=== PATIENT | male | born 1985 | race Caucasian/White ===

== ENCOUNTER 2021-07-12 08:43 | Emergency (ER) | payer MEDICAID, SELFPAY ==
[2021-07-12 08:47] VITALS: BP 114/69; PULSE 80; RESP 16; TEMP 36.7; O2SAT 98; BMI 22.5
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
--- NOTE | 2021-07-12 10:09 | PC.NURSE ---
PT HERE FOR MEDICATION REFILL ONLY. NO OTHER COMPLAINTS TODAY. NAD.
== END 2021-07-12 10:13 | disposition home or self-care (01) ==
PROVIDERS: Emergency Provider Emergency Medicine
DX: Z76.0 Encounter for issue of repeat prescription (principal); F31.9 Bipolar disorder, unspecified; F20.9 Schizophrenia, unspecified; F95.2 Tourette's disorder
CPT/HCPCS: 99283

== ENCOUNTER 2021-08-02 23:07 | Emergency (ER) | payer MEDICAID, SELFPAY ==
[2021-08-02 23:08] VITALS: BP 144/87; PULSE 76; RESP 18; TEMP 36.6; O2SAT 98; BMI 22.5
--- NOTE | 2021-08-02 23:43 | ED.DENTAL ---
HPI - Dental/Oral General Chief complaint: Dental/Oral Stated complaint: Dental pain Time Seen by Provider: 08/02/21 23:39 Source: patient Mode of arrival: ambulatory Limitations: no limitations History of Present Illness HPI Narrative: Patient with dental caries after eating nuts broke is to complaining of increased pain now. Patient does have an dentist and plan to follow up with him tomorrow Complaint: tooth pain Teeth map: 1. Broken carious tooth Onset (ago): hour(s) Duration: constant Severity: severe Severity scale (1-10): 6 Relieving factors: nothing Exacerbating factors: chewing and cold Context: history of dental caries Treatment prior to arrival: none Related Data Previous Rx's Medication Instructions Recorded aripiprazole 2 mg tablet (Abilify) 2 mg PO DAILY #30 tab 07/12/21 clonidine HCl 0.1 mg tablet 0.1 mg PO BID PRN #60 tab 07/12/21 propranolol 10 mg tablet 10 mg PO DAILY #30 tab 07/12/21 amoxicillin 875 mg-potassium 1 tab PO BID #20 tab 08/02/21 clavulanate 125 mg tablet (Augmentin) oxycodone-acetaminophen 5 mg-325 1 tab PO Q6H PRN #20 tab 08/02/21 mg tablet (Percocet) Allergies Allergy/AdvReac Type Severity Reaction Status Date / Time No Known Allergies Allergy Verified 08/02/21 23:31 Review of Systems Review of Systems: Yes all other systems are reviewed and are negative PMFSH Past Medical History Medical History Bipolar 1 disorder Schizophrenia Tourette's Social History Social History Advance Directives: No Physical Exam Vital Signs: Vital Signs: Last Vital Signs Temp 97.8 F 08/02/21 23:08 Pulse 76 08/02/21 23:08 Resp 18 08/02/21 23:08 BP 144/87 H 08/02/21 23:08 Pulse Ox 98 08/02/21 23:08 Body Mass Index 22.5 Const: General: no acute distress and well developed Orientation/consciousness: patient oriented x3 HENMT: Teeth image: 1. Broken tooth with deep caries no gum swelling or abscess tender to touch Throat: Yes posterior oropharynx normal Resp: Effort & Inspection: normal respiratory effort Auscultation: clear to auscultation bilaterally Cardio: Rate: regular rate Rhythm: regular rhythm Heart sounds: S1 normal heart sound present and S2 normal heart sound present Neuro: General: patient oriented x3 Discharge Plan Discharge Clinical Impression: Dental caries Patient Disposition: Home, Self-Care Instructions: Toothache (ED) Additional Instructions: Take antibiotic and pain medication as prescribed Follow-up with dentist Prescriptions: New oxycodone-acetaminophen [Percocet] 5-325 mg tablet 1 tab PO Q6H PRN (Reason: pain) Qty: 20 RF: 0 amoxicillin-pot clavulanate [Augmentin] 875-125 mg tablet 1 tab PO BID Qty: 20 RF: 0 No Action aripiprazole [Abilify] 2 mg tablet 2 mg PO DAILY Qty: 30 RF: 0 propranolol 10 mg tablet 10 mg PO DAILY Qty: 30 RF: 0 clonidine HCl 0.1 mg tablet 0.1 mg PO BID PRN (Reason: anxiety) Qty: 60 RF: 0
[2021-08-02] MEDS: Amoxicillin/Potassium Clav 875 MG TABLET PO (23:51)
[2021-08-02] MEDS: oxyCODONE HCl Immed Release 5 MG TABLET 10 MG PO (23:51)
== END 2021-08-02 23:59 | disposition home or self-care (01) ==
PROVIDERS: Emergency Provider Internal Medicine
DX: K02.9 Dental caries, unspecified (principal)
CPT/HCPCS: 99283; 99284

== ENCOUNTER 2022-04-15 02:18 | Emergency (ER) | payer OTHER, SELFPAY ==
--- NOTE | 2022-04-15 03:20 | ECG_ITS ---
Test Reason : ?SYNCOPE Blood Pressure : / mmHG Vent. Rate : 063 BPM Atrial Rate : 063 BPM P-R Int : 124 ms QRS Dur : 100 ms QT Int : 382 ms P-R-T Axes : 007 072 044 degrees QTc Int : 390 ms Normal sinus rhythm Normal ECG No previous ECGs available Referred By: Generic ED Physician Electronically Signed By:RIAN SINGLETON MD
[2022-04-15 03:26] LABS: Hematocrit 42.2 % (42.0-52.0); Hemoglobin 13.8 g/dl (14.0-18.0); Mean Corpuscular HGB Conc 32.7 g/dl (31.0-36.0); Mean Corpuscular Hemoglobin 29.4 pg (27.0-33.0); Mean Corpuscular Volume 89.8 fL (80.0-98.0); Mean Platelet Volume 8.9 fL (9.4-12.4); Platelet Count 292 X10*3/uL (160-400); Red Cell Distribution Width 13.5 % (11.0-16.0); White Blood Count 11.5 X10*3/uL (4.8-10.8)
[2022-04-15 03:47] VITALS: BP 130/75; PULSE 68; RESP 20; TEMP 36.6; O2SAT 98; BMI 21.9
[2022-04-15 03:49] LABS: Alanine Aminotransferase 29 U/L (0-40); Albumin Level 4.4 g/dL (3.5-5.0); Alkaline Phosphatase 75 U/L (39-117); Anion Gap 14 (12-20); Aspartate Amino Transferase 29 U/L (5-37); Bilirubin Total 0.2 mg/dL (0.0-1.0); Blood Urea Nitrogen 12 mg/dL (9-16); Calcium 9.4 mg/dL (8.4-10.2); Carbon Dioxide 25 mmol/L (22-29); Chloride 106 mmol/L (96-108); Estimated Glomerular Filt Rate > 60; Glucose Random 86 mg/dL (60-115); Sodium 141 mmol/L (135-145); Total Protein 6.8 g/dL (6.5-8.0)
== END 2022-04-15 07:07 | disposition left against medical advice (07) ==
PROVIDERS: Emergency Provider Emergency Medicine
DX: K59.00 Constipation, unspecified (principal); R10.31 Right lower quadrant pain; K92.1 Melena
CPT/HCPCS: 36415; 80053; 85027; 93005; 99283